=== PATIENT | female | born 1930 | race Caucasian/White ===

== ENCOUNTER 2016-06-08 03:39 | Emergency (ER) | payer MEDICARE, OTHER ==
[2016-06-08 03:40] VITALS: BMI 23.8
--- NOTE | 2016-06-08 05:00 | EDPRACDOC ---
- General Information Chief Complaint: Fall Stated Complaint: FALL: RIB/WRIST PAIN Time Seen by Provider: 06/08/16 03:40 Information Source: [employer] Mode of Arrival: Ambulance Home Medications: Home Medications Clopidogrel Bisulfate [Plavix] 75 mg PO DAILY 08/24/14 Lovastatin 20 mg PO HS 08/24/14 PEG-Electrolytes (Miralax) [Miralax] 17 gm PO DAILY 08/24/14 Alendronate Sodium [Fosamax] 70 mg PO FR 01/10/16 Lactobacillus Acidophilus [Florajen] 460 mg PO DAILY #60 capsule 02/05/16 Artificial Tears 1 drop OU BID PRN 04/22/16 Levothyroxine [Synthroid, Levoxyl] 75 mcg PO DAILY 04/22/16 Mag Hydrox/Al Hydrox/Simeth [Antacid Suspension] 30 ml PO QID PRN 04/22/16 Acetaminophen [Mapap] 650 mg PO QID 05/24/16 Cyanocobalamin (Vitamin B-12) [B-12] 2,500 mcg SL DAILY 05/24/16 Pantoprazole Sodium [Protonix] 20 mg PO DAILY #30 tab 05/26/16 Senna Concentrate [Senokot] 2 tab PO HS #120 tablet 05/26/16 Acetaminophen [Mapap] 1,000 mg PO Q6H PRN 06/05/16 Diphenhydramine HCl [Benadryl Allergy] 25 mg PO Q4H PRN 06/05/16 Fluticasone Propionate [Flonase Nasal Orange] 2 spray JANAK DAILY 06/05/16 Lactose-Reduced Food [Boost] 4 oz PO QID 06/05/16 Magnesium Hydroxide [Milk of Magnesia] 30 ml PO DAILY PRN 06/05/16 Allergies/Adverse Reactions: Allergies Allergy/AdvReac Type Severity Reaction Status Date / Time amlodipine besylate Allergy Dizziness Verified 06/08/16 03:50 [From Norvasc] atorvastatin calcium Allergy Unknown Verified 06/08/16 03:50 [From Lipitor] codeine [Codeine] Allergy Unknown/See Verified 06/08/16 03:50 Comments Iodinated Contrast Media - Allergy Unknown/See Verified 06/08/16 03:50 IV Dye Comments morphine Allergy Unknown/See Verified 06/08/16 03:50 Comments Penicillins Allergy Unknown Verified 06/08/16 03:50 raloxifene HCl [From Evista] Allergy Unknown Verified 06/08/16 03:50 - History of Present Illness Onset: [employer] HPI: PT PRESENTS TO ER WITH RIB PAIN AFTER LEANING OVER A RAILING. ED Past Medical History - History Reviewed Yes Nurses notes reviewed and agree except as marked - Patient Medical History Neurological History: Reports: Cerebrovascular Accident (or TIA.), Dementia Cardiac History: Reports: Hypertension GI/ History: Reports: Renal Disease (Mild, intermittent, CKD stage 2), Urinary Tract Infection, Gastroesophageal Reflux (mostly resolved) Musculoskeletal History: Reports: Arthritis Psychological History: Reports: Anxiety. Denies: Substance Use Disorder. Comment Only: Depression (unknown) Systemic History: Reports: Cancer (Colon cancer 2015, resction. No rad/chemo.), Diabetes (Type 2), Hypothyroidism Surgical History: Reports: Tonsillectomy/Adnoidectomy, Other (Hemorrhoids. Hip surgery.) - Family Medical History Reports: Hypertension, Cancer (Sister: Melanoma. Mother: kidney cancer. Father: skin.), Respiratory Disorders (Father: COPD). Denies: Diabetes, Stroke, Cardiac Disorders - Social Medical History Smoking Status: Never smoker Social History: Denies: Substance Use Disorder Lives In: Senior Living Facility EDM Review of Systems - Review of Systems ROS Unobtainable: Yes Hx Limited due to age/level of understanding of patient Musculoskeletal: Back, Chestwall - Physical Exam Constitutional: Alert Oriented to: Person, Place Last recorded Vital Signs: Last Vital Signs Temp 97.4 F L 06/08/16 03:45 Pulse 76 06/08/16 03:45 Resp 20 06/08/16 03:45 BP 146/70 06/08/16 03:45 Pulse Ox 94 06/08/16 03:45 Oxygen Pulse Oxygen Saturation 94 O2 Device Room Air Oxygen Flow Rate Fraction of Inspired Oxygen ( FIO2) - HEENT Head: negative: Deformity, Laceration Eye Exam: negative: Conjunctival Injection, Pale Conjunctiva Oropharynx: negative: Membranes Dry Nose: negative: Congestion, Discharge, Injection Neck: negative: In Collar, Limited ROM - Respiratory/Cardiovascular Respiratory: Normal - CTA. negative: Accessory Muscle Use, Diminished, Tachypnea Cardiovascular: negative: Bradycardia, Tachycardia, Irregular - GI Auscultation: Normal Palpation: Normal Tenderness: Non tender - Musculoskeletal Extremities: Radial Pulse (PALPABLE) - Integumentary Skin: Warm, Dry. negative: Rash - Neurologic Memory Impaired: Short-term, Long-term Motor Function: Normal Mood Description: Anxious Thought: Coherent - Departure Yes I personally saw and evaluated the patient. Disposition: Home Condition: Stable Final Diagnosis: Chest wall pain Instructions: RICE: Routine Care for Injuries, Chest Wall Pain Education/Counseling Given To: Patient Education/Counseling Given Regarding: Diagnosis, Treatment, Prognosis, Follow Up Referrals: James Gore MD [Primary Care Provider] - Call for Appointment
--- NOTE | 2016-06-08 05:08 | DIRPT ---
CLINICAL DATA: Acute onset of cough and congestion. Rib pain. Initial encounter. EXAM: BILATERAL RIBS AND CHEST - 4+ VIEW COMPARISON: Chest radiograph from 06/05/2016 FINDINGS: No displaced rib fractures are seen. The lungs are well-aerated and clear. There is no evidence of focal opacification, pleural effusion or pneumothorax. The cardiomediastinal silhouette is within normal limits. No acute osseous abnormalities are seen. A moderate hiatal hernia is noted, partially filled with fluid and air. IMPRESSION: 1. No displaced rib fracture seen. 2. No acute cardiopulmonary process identified. 3. Moderate hiatal hernia noted. Electronically Signed By: Bryon Gray M.D. On: 06/08/2016 05:06
[2016-06-08 05:44] VITALS: BP 100/57; PULSE 77; TEMP 98.5
== END 2016-06-08 05:42 ==
LOC: ED 03:39
DX: R07.89 Other chest pain (principal)
CPT/HCPCS: 71111; 99283

== ENCOUNTER 2016-06-08 18:07 | Emergency (ER) | payer MEDICARE, OTHER ==
[2016-06-08 18:08] VITALS: BMI 23.8
[2016-06-08 18:21] VITALS: TEMP 98.6
--- NOTE | 2016-06-08 18:25 | EDPRACDOC ---
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 for unwitnessed fall from wheelchair. Pt has no complaints currently, denies cp, sob. was on ground for aprox 10 mins. [facility] staff mentioned that pt has been more lethargic lately. Pain Severity: Reports: None Injuries/Pain Location: Reports: no injury Reason for Fall: Reports: unknown Associated Symptoms (Fall): Reports: denies symptoms Allergies/Adverse Reactions: Allergies amlodipine besylate [From Norvasc] Allergy (Verified 06/08/16 03:50) Dizziness atorvastatin calcium [From Lipitor] Allergy (Verified 06/08/16 03:50) Unknown codeine [Codeine] Allergy (Verified 06/08/16 03:50) Unknown/See Comments Iodinated Contrast Media - IV Dye Allergy (Verified 06/08/16 03:50) Unknown/See Comments morphine Allergy (Verified 06/08/16 03:50) Unknown/See Comments Penicillins Allergy (Verified 06/08/16 03:50) Unknown raloxifene HCl [From Evista] Allergy (Verified 06/08/16 03:50) Unknown Home Medications: Ambulatory Orders Clopidogrel Bisulfate [Plavix] 75 mg PO DAILY 08/24/14 Lovastatin 20 mg PO HS 08/24/14 PEG-Electrolytes (Miralax) [Miralax] 17 gm PO DAILY 08/24/14 Alendronate Sodium [Fosamax] 70 mg PO FR 01/10/16 Lactobacillus Acidophilus [Florajen] 460 mg PO DAILY #60 capsule 02/05/16 Artificial Tears 1 drop OU BID PRN 04/22/16 Levothyroxine [Synthroid, Levoxyl] 75 mcg PO DAILY 04/22/16 Mag Hydrox/Al Hydrox/Simeth [Antacid Suspension] 30 ml PO QID PRN 04/22/16 Acetaminophen [Mapap] 650 mg PO QID 05/24/16 Cyanocobalamin (Vitamin B-12) [B-12] 2,500 mcg SL DAILY 05/24/16 Pantoprazole Sodium [Protonix] 20 mg PO DAILY #30 tab 05/26/16 Senna Concentrate [Senokot] 2 tab PO HS #120 tablet 12/20/16 Acetaminophen [Mapap] 1,000 mg PO Q6H PRN 06/05/16 Diphenhydramine HCl [Benadryl Allergy] 25 mg PO Q4H PRN 06/05/16 Fluticasone Propionate [Flonase Nasal [place]] 2 spray JANAK DAILY 06/05/16 Lactose-Reduced Food [Boost] 4 oz PO QID 06/05/16 Magnesium Hydroxide [Milk of Magnesia] 30 ml PO DAILY PRN 06/05/16 Ciprofloxacin HCl [Cipro] 500 mg PO BID #20 tab 06/08/16 ED Past Medical History - History Reviewed Yes Nurses notes reviewed and agree except as marked - Patient Medical History Neurological History: Reports: Cerebrovascular Accident (or TIA.), Dementia Cardiac History: Reports: Hypertension GI/ History: Reports: Renal Disease (Mild, intermittent, CKD stage 2), Urinary Tract Infection, Gastroesophageal Reflux (mostly resolved) Musculoskeletal History: Reports: Arthritis Psychological History: Reports: Anxiety. Denies: Substance Use Disorder. Comment Only: Depression (unk) Systemic History: Reports: Cancer (Colon cancer 2015, resction. No rad/chemo.), Diabetes (Type 2), Hypothyroidism Surgical History: Reports: Tonsillectomy/Adnoidectomy, Other (Hemorrhoids. Hip surgery.) - Family Medical History Reports: Hypertension, Cancer (Sister: Melanoma. Mother: kidney cancer. Father: skin.), Respiratory Disorders (Father: COPD). Denies: Diabetes, Stroke, Cardiac Disorders - Social Medical History Smoking Status: Never smoker Social History: Denies: Substance Use Disorder EDM Review of Systems - Review of Systems ROS Negative Except as Marked: Yes All systems reviewed and were negative except as marked - Physical Exam Constitutional: No apparent distress, Alert Oriented to: Person Last recorded Vital Signs: Last Vital Signs Temp 98.6 F 06/08/16 18:07 Pulse 71 06/08/16 18:07 Resp 18 06/08/16 18:07 BP 117/57 L 06/08/16 18:07 Pulse Ox 94 06/08/16 18:07 Oxygen Pulse Oxygen Saturation 94 O2 Device Oxygen Flow Rate Fraction of Inspired Oxygen ( FIO2) - HEENT Head: Normal Eye Exam: negative: Conjunctival Injection, Scleral Icterus Oropharynx: negative: Drooling TMJ: Normal Nose: No Symptoms Reported Neck: Normal - Respiratory/Cardiovascular Respiratory: Normal - CTA Cardiovascular: Normal - GI Tenderness: Non tender - Musculoskeletal Back: Normal Extremities: Normal - Integumentary Skin: Normal - Neurologic Cranial Nerve: Normal Mood Description: Normal Thought: Rambling Conversation ED Injury/Fall Exam - Physical Exam Head Injury: no evidence of injury Extremity Exam: no evidence of injury Skin: Normal - Michaela Coma Score Best Eye Response (Michaela): (4) open spontaneously Best Verbal Response (Michaela): (5) oriented Best Motor Response (Michaela): (6) obeys commands [place] Total: 15 - Results 06/08/16 18:30 06/08/16 18:30 - Diagnostic Imaging Head Image interpreted by: Radiologist EXAM: CT HEAD WITHOUT CONTRAST TECHNIQUE: Contiguous axial images were obtained from the base of the skull through the vertex without intravenous contrast. COMPARISON: 06/05/2016 FINDINGS: Sinuses/Soft tissues: Mucosal thickening of ethmoid air cells, sphenoid sinus, and frontal sinus. No soft tissue swelling or skull fracture. Clear mastoid air cells. Intracranial: Mild to moderate low density in the periventricular white matter likely related to small vessel disease. No mass lesion, hemorrhage, hydrocephalus, acute infarct, intra-axial, or extra-axial fluid collection. IMPRESSION: 1. No acute intracranial abnormality. 2. Sinus disease. 3. Small vessel ischemic change. Electronically Signed By: Jaylan Stallworth M.D. On: 06/08/2016 20:13 Decision Time to Discharge: 20:24 - Departure Disposition: Retirement Facility Condition: Stable Final Diagnosis: UTI (urinary tract infection) Qualifiers: Urinary tract infection type: site unspecified Hematuria presence: without hematuria Qualified Code(s): N39.0 - Urinary tract infection, site not specified Instructions: RICE: Routine Care for Injuries, Urinary Tract Infection in Women (ED), Dysuria Education/Counseling Given To: Patient Education/Counseling Given Regarding: Diagnosis, Treatment, Prognosis, Follow Up Referrals: Edu Irizarry MD [Primary Care Provider] - One Week Prescriptions: Ciprofloxacin HCl [Cipro] 500 mg PO BID #20 tab Additional Instructions: Follow up with primary care. Take cipro for urinary tract infection. Return to ED for any new or worsening symptoms.
[2016-06-08 18:39] LABS: AUTOMATED BASOPHIL 0.4 % (0-2); AUTOMATED EOSINOPHIL 0.5 % (0-5); AUTOMATED LYMPH 15.9 % (17-44); AUTOMATED NEUTROPHIL 70.2 % (45-76); MPV 8.6 fL (7.4-10.4)
[2016-06-08 18:50] LABS: BLOOD UREA NITROGEN 21 MG/DL (7-17); CALC CORRECTED 9.3 MG/DL (8.4-10.2); CALCIUM 9.2 MG/DL (8.4-10.2); CALCULATED OSMOLALITY 273 MOs/Kg (270-290); CHLORIDE 103 mEq/L (98-107); GLUCOSE 113 MG/DL (70-99); SODIUM LEVEL 140 mEq/L (137-146); TOTAL PROTEIN 7.3 G/DL (6.3-8.2)
[2016-06-08 19:00] LABS: LEUKOCYTES/URINE NEG (NEGATIVE); NITRITE/URINE NEG (NEGATIVE); RBC/URINE TNTC (0-5); URINE OCCULT BLOOD 3+ (NEG/TRACE)
[2016-06-08] MEDS ORDERED: CIPROFLOXACIN HCL 500 MG TAB PO ONE (19:37)
--- NOTE | 2016-06-08 20:16 | DIRPT ---
CLINICAL DATA: Fall from a chair. Weakness prior to fall. EXAM: CT HEAD WITHOUT CONTRAST TECHNIQUE: Contiguous axial images were obtained from the base of the skull through the vertex without intravenous contrast. COMPARISON: 06/05/2016 FINDINGS: Sinuses/Soft tissues: Mucosal thickening of ethmoid air cells, sphenoid sinus, and frontal sinus. No soft tissue swelling or skull fracture. Clear mastoid air cells. Intracranial: Mild to moderate low density in the periventricular white matter likely related to small vessel disease. No mass lesion, hemorrhage, hydrocephalus, acute infarct, intra-axial, or extra-axial fluid collection. IMPRESSION: 1. No acute intracranial abnormality. 2. Sinus disease. 3. Small vessel ischemic change. Electronically Signed By: Jaylan Stallworth M.D. On: 06/08/2016 20:13
[2016-06-08 21:06] VITALS: BP 122/59; PULSE 74
== END 2016-06-08 21:26 ==
LOC: ED 18:07
DX: N39.0 Urinary tract infection, site not specified (principal); F03.90 Unspecified dementia, unspecified severity, without behavioral disturbance, psychotic disturbance, mood disturbance, and anxiety
CPT/HCPCS: 36415; 70450; 80053; 81001; 84484; 85025; 87077; 87086; 87186; 93005; 99284; A9270; 71111; 99283; J3490